=== PATIENT | female | born 1970 | race Caucasian/White ===

== ENCOUNTER 2020-02-01 17:59 | Emergency (ER) | payer OTHER ==
[~2020-02-01] VITALS: Ht 162.6 cm; Wt 68.2 kg
--- NOTE | 2020-02-01 18:18 | NUR ---
Danny RN: GAURI COOK for ETOH, EMS called for laying on the street outside of her house, per JOEY pt consumed a pint of Jagermister today. Pt very intoxicated upon arrival to ED, changed into gown & room suicide secured. Pt unable to state whether or not she is suicial at this time. Pt tearful during trigae but unable to verbalize why. Pt states that she may have recently been tested for COVID but results have not come back yet or pt does not remember them. Pt is unable to give a clear history about COVID testing, presumably d/t ETOH intoxication. Pt denies other drug use. Pt tearfully intoxicated but cooperative at this time. Pt in bed, in hospital gown, all pt belongings (leggings, socks, 1 croc shoe, sweatshirt, long sleeve shirt, cell phone, wallet & keys) removed from room. Bedside report to EMILEE Man.
--- NOTE | 2020-02-01 22:39 | NUR ---
Pt ambulated without assistance. GCA 15. PA assessed Pt and said she was good to go home. Pt denies suicidal thoughts. No distress at this time.
--- NOTE | 2020-02-01 22:52 | NUR ---
Gave DC instructions to Pt. Verbalized understanding.
[2020-02-01 22:53] VITALS: BP 127/89
== END 2020-02-01 22:55 | disposition home or self-care (01) ==
LOC: ED 19:05
DX: F10.120 Alcohol abuse with intoxication, uncomplicated (principal); Y90.9 Presence of alcohol in blood, level not specified
CPT/HCPCS: 99283

== ENCOUNTER 2020-06-28 23:31 | Emergency (ER) | payer MEDICAID, OTHER ==
[~2020-06-28] VITALS: Ht 162.6 cm; Wt 72.0 kg
[2020-06-28 23:33] VITALS: BP 127/87
== END 2020-06-29 00:18 | disposition home or self-care (01) ==
LOC: ED 06-29 00:13
DX: R44.3 Hallucinations, unspecified (principal); T42.4X5A Adverse effect of benzodiazepines, initial encounter; R94.31 Abnormal electrocardiogram [ECG] [EKG]; Y92.89 Other specified places as the place of occurrence of the external cause
CPT/HCPCS: 93005; 99283

== ENCOUNTER 2020-07-04 07:20 | Emergency (ER) | payer MEDICAID ==
[~2020-07-04] VITALS: Ht 162.6 cm; Wt 71.5 kg
[2020-07-04] MEDS ORDERED: IBUPROFEN 200 MG TABLET PO ONE (08:00)
[2020-07-04] MEDS ORDERED: ACETAMINOPHEN 325 MG TABLET PO ONE (08:00)
[2020-07-04] MEDS ORDERED: ACETAMINOPHEN 325 MG TABLET ONE (08:02)
[2020-07-04] MEDS ORDERED: IBUPROFEN 200 MG TABLET ONE (08:02)
[2020-07-04 09:04] VITALS: BP 112/73
[2020-07-04] MEDS ORDERED: ALPR0.5T7 PO (09:23)
[2020-07-04] MEDS ORDERED: MULT-658 PO (09:24)
[2020-07-04] MEDS ORDERED: HYDR-3240 PO (09:25)
--- NOTE | 2020-07-04 09:25 | NUR ---
SBAR HAND-OFF REPORT RECEIVED FROM EMILEE VEGA. ASSUMING CARE OF PATIENT. PT TO XRAY AT THIS TIME.
--- NOTE | 2020-07-04 10:51 | NUR ---
Patient given discharge instructions and they have confirmed that they understand the instructions. Patient ambulatory with steady gait.
== END 2020-07-04 10:52 | disposition home or self-care (01) ==
LOC: ED 08:16
DX: B34.9 Viral infection, unspecified (principal); Z20.828 Contact with and (suspected) exposure to other viral communicable diseases; R20.2 Paresthesia of skin; R05 Cough
CPT/HCPCS: 36415; 72110; 87635; 99284

== ENCOUNTER 2020-07-04 20:53 | Emergency (ER) | payer MEDICAID ==
[~2020-07-04] VITALS: Ht 162.6 cm; Wt 73.3 kg
[~2020-07-04 20:53] MED LIST: ALPR0.5T7 PO; HYDR-3240 PO; MULT-658 PO
[2020-07-04 20:59] VITALS: BP 122/78
--- NOTE | 2020-07-04 22:04 | NUR ---
PT VERY POOR HISTORIAN. PT STATES SHE HAS BEEN DOING WHIP ITS AND AFTER DOING SEVERAL AT HOME, HER LEGS BECAME NUMB BELOW THE KNEES. MOVEMENT AND STRENGTH APPEAR TO BE INTACT BUT PT CANNOT FEEL TOUCH TO LEGS BELOW THE KNEES.
[2020-07-04 22:59] LABS: BASOPHILS % (AUTO) 0 % (0-1); EOSINOPHILS % (AUTO) 1 % (1-7); LYMPHOCYTES % (AUTO) 46 % (22-44); MEAN CORPUSCULAR HEMOGLOBIN 36.9 pg (27.0-34.8); MEAN CORPUSCULAR HGB CONC 35.5 g/dL (32.4-35.8); MONOCYTES % (AUTO) 9 % (2-9); NEUTROPHILS % (AUTO) 44 % (42-75); PLATELET COUNT 199 x10^3/uL (130-400); RED BLOOD COUNT 3.14 x10^6/uL (3.82-5.3)
[2020-07-04 23:02] LABS: MICROSCOPIC NOT IND
[2020-07-04 23:08] LABS: ALBUMIN 3.6 g/dL (3.4-5.0); ANION GAP 9 mmol/L (5-15); CALCIUM 8.3 mg/dL (8.5-10.1); CHLORIDE 97 mmol/L (98-107)
[2020-07-04 23:14] LABS: ALANINE AMINOTRANSFERASE 35 U/L (12-78); ALKALINE PHOSPHATASE 51 U/L (45-117); BILIRUBIN,TOTAL 0.8 mg/dL (0.2-1.0); CREATININE 0.65 mg/dL (0.55-1.02); TOTAL PROTEIN 7.1 g/dL (6.4-8.2)
[2020-07-04 23:16] LABS: AMPHETAMINE SCREEN, URINE Negative (Negative); BARBITURATE SCREEN, URINE Negative (Negative); BENZODIAZEPINE SCREEN, URINE Positive (Negative); CANNABINOID SCREEN, URINE Negative (Negative); COCAINE SCREEN, URINE Negative (Negative); METHADONE SCREEN, URINE Negative (Negative); OPIATE SCREEN, URINE Negative (Negative)
[2020-07-04 23:20] LABS: MD NO; SALICYLATE LEVEL < 1.7 mg/dL (2.8-20.0)
--- NOTE | 2020-07-05 | NUR ---
PT REQUESTING TO LEAVE. JOVANNAA PAPERWORK SIGNED AND ADDED TO PAPER CHART. PT PROVIDED TAXI VOUCHER HOME.
== END 2020-07-05 00:02 | disposition left against medical advice (07) ==
LOC: ED 21:22
DX: R20.2 Paresthesia of skin (principal); Z72.9 Problem related to lifestyle, unspecified; F10.220 Alcohol dependence with intoxication, uncomplicated; R94.31 Abnormal electrocardiogram [ECG] [EKG]
CPT/HCPCS: 36415; 80053; 80307; 81003; 84703; 85025; 93005; 99284

== ENCOUNTER 2020-07-06 05:02 | Emergency (ER) | payer MEDICAID ==
[~2020-07-06] VITALS: Ht 162.6 cm; Wt 71.5 kg
[2020-07-06 05:30] VITALS: BP 111/73
--- NOTE | 2020-07-06 05:45 | NUR ---
49 YO FEMALE CC OF "NOT ABLE TO FEEL MY LEGS" X3 DAYS, SEEN HERE FOR SAME COMPLAINT MULTIPLE TIMES THIS MONTH. PT APPEARS TO BE WELL NOURISHED AND IS PLEASANT. PT STATES SHE HAD TWO BEERS AROUND 0330 TODAY AND SOMETIMES USES COCAINE BUT "HASN'T USED IN MONTHS". MD AT BEDSIDE FOR EXAM.
[2020-07-06 06:49] LABS: ANION GAP 8 mmol/L (5-15); CALCIUM 8.9 mg/dL (8.5-10.1); CHLORIDE 104 mmol/L (98-107)
[2020-07-06 06:50] LABS: CREATININE 0.75 mg/dL (0.55-1.02)
--- NOTE | 2020-07-06 07:03 | NUR ---
RECEIVED REPORT FROM NAI MIGUEL RN'S. PT RESTING ON TIMMY.
== END 2020-07-06 07:23 | disposition home or self-care (01) ==
LOC: ED 05:38
DX: G62.1 Alcoholic polyneuropathy (principal); F10.20 Alcohol dependence, uncomplicated; E11.9 Type 2 diabetes mellitus without complications; Z87.891 Personal history of nicotine dependence; Y90.9 Presence of alcohol in blood, level not specified
CPT/HCPCS: 36415; 80048; 99283

== ENCOUNTER 2020-07-11 14:48 | Emergency (ER) | payer MEDICAID ==
[~2020-07-11] VITALS: Ht 162.6 cm; Wt 70.8 kg
[2020-07-11 16:20] LABS: BASOPHILS % (AUTO) 0 % (0-1); EOSINOPHILS % (AUTO) 1 % (1-7); LYMPHOCYTES % (AUTO) 17 % (22-44); MEAN CORPUSCULAR HEMOGLOBIN 36.3 pg (27.0-34.8); MEAN CORPUSCULAR HGB CONC 34.2 g/dL (32.4-35.8); MEAN PLATELET VOLUME 7.7 fL (7.4-10.4); MONOCYTES % (AUTO) 7 % (2-9); NEUTROPHILS % (AUTO) 75 % (42-75); PLATELET COUNT 216 x10^3/uL (130-400); RED BLOOD COUNT 3.46 x10^6/uL (3.82-5.3); RED CELL DISTRIBUTION WIDTH 16.2 % (9.6-15.2)
[2020-07-11 16:26] LABS: MD NO
[2020-07-11 16:29] LABS: ALBUMIN 3.6 g/dL (3.4-5.0); ANION GAP 8 mmol/L (5-15); CALCIUM 8.6 mg/dL (8.5-10.1); CHLORIDE 107 mmol/L (98-107)
[2020-07-11 16:35] LABS: ALANINE AMINOTRANSFERASE 20 U/L (12-78); ALKALINE PHOSPHATASE 72 U/L (45-117); CREATININE 0.76 mg/dL (0.55-1.02); TOTAL PROTEIN 7.3 g/dL (6.4-8.2)
--- NOTE | 2020-07-11 17:51 | NUR ---
patient had a democrat on the of this month, reports that she did about 150 whip it's and some norcos. passed out/fell and urinated on herself, then woke up pacing house. since then she's felt weakness, numbness to ble and fatigue
[2020-07-11] MEDS ORDERED: THIAMINE 100MG TABLET PO ONE (18:00)
--- NOTE | 2020-07-11 18:52 | NUR ---
REPORT TO YOSELIN
[2020-07-11] MEDS ORDERED: POTASSIUM CHLORIDE 20 MEQ TAB.ER.PRT PO ONE (19:00)
[2020-07-11] MEDS ORDERED: THIAMINE 100MG TABLET ONE (19:13)
[2020-07-11] MEDS ORDERED: POTASSIUM CHLORIDE 20 MEQ TAB.ER.PRT ONE (19:14)
--- NOTE | 2020-07-11 19:20 | NUR ---
Report received from Clemente HEBERT. Care assumed. Pt resting with no acute distress noted. Pt medicated per NOV. Chart up for recheck. VSS. Call light in reach. No further needs expressed.
[2020-07-11 20:55] VITALS: BP 124/76
== END 2020-07-11 20:57 | disposition home or self-care (01) ==
LOC: ED 18:46
DX: R20.2 Paresthesia of skin (principal); F10.10 Alcohol abuse, uncomplicated; R94.31 Abnormal electrocardiogram [ECG] [EKG]; Y90.9 Presence of alcohol in blood, level not specified
CPT/HCPCS: 36415; 70450; 80053; 80307; 84703; 85025; 93005; 99285

== ENCOUNTER 2020-08-05 13:12 | Inpatient (IN) | payer MEDICAID ==
[~2020-08-05] VITALS: Ht 162.6 cm; Wt 73.2 kg
--- NOTE | 2020-08-05 13:27 | NUR ---
PATIENT GAURI ALONSO WITH CHIEF C/O DVT. PER JOEY PATIENT WAS AT [facility] AND DIAGNOSED WITH DVT IN HER LEFT LEG. PATIENT STATES SHE NOTICED SWELLING IN HER LEFT LEG AROUND June, WAS SEEN IN ER FOR SWELLING AND TOLD TO SEE PCP, HOWEVER, PATIENT STATES "I FORGOT WHAT THEY SAID AND THEN LOOKED AT THE PAPERWORK AND SAW IT SAID TO FOLLOW UP WITH PCP RIGHT AWAY." 18 GAUGE IV STARTED EN ROUTE IN R-AC, VITALS STABLE PER EMS. PATIENT'S LEFT CALF IS SWOLLEN, WARM TO THE TOUCH. PATIENT CONNECTED TO VITALS MACHINE, NO SIGNS OF ACUTE DISTRESS, CALL LIGHT WITHIN REACH.
--- NOTE | 2020-08-05 13:28 | NUR ---
ERMD AT BEDSIDE.
[2020-08-05] MEDS ORDERED: SODIUM CHLORIDE FLUSH 10ML SYR IVF ONE (14:00)
--- NOTE | 2020-08-05 14:05 | NUR ---
PATIENT TO IMAGING.
[2020-08-05] MEDS ORDERED: LORazepam 2 MG/ML, 1ML IV ONE (14:30)
[2020-08-05] MEDS ORDERED: LORazepam 2 MG/ML, 1ML ONE (14:32)
--- NOTE | 2020-08-05 14:37 | NUR ---
PT MEDICATED PER MAR
[2020-08-05 14:55] LABS: HCT (SEDRATE) 38.6 % (34.6-47.8)
[2020-08-05 14:58] LABS: BASOPHILS % (AUTO) 1 % (0-1); EOSINOPHILS % (AUTO) 1 % (1-7); LYMPHOCYTES % (AUTO) 29 % (22-44); MEAN CORPUSCULAR HEMOGLOBIN 35.9 pg (27.0-34.8); MEAN CORPUSCULAR HGB CONC 34.4 g/dL (32.4-35.8); MEAN PLATELET VOLUME 7.8 fL (7.4-10.4); MONOCYTES % (AUTO) 14 % (2-9); NEUTROPHILS % (AUTO) 56 % (42-75); PLATELET COUNT 227 x10^3/uL (130-400); RED BLOOD COUNT 3.71 x10^6/uL (3.82-5.3); RED CELL DISTRIBUTION WIDTH 14.3 % (9.6-15.2)
[2020-08-05 14:59] LABS: MD NO
[2020-08-05 15:02] LABS: ALBUMIN 3.3 g/dL (3.4-5.0); ANION GAP 5 mmol/L (5-15); CALCIUM 8.8 mg/dL (8.5-10.1); CHLORIDE 109 mmol/L (98-107)
--- NOTE | 2020-08-05 15:09 | NUR ---
PATIENT TO IMAGING.
[2020-08-05 15:29] LABS: ALANINE AMINOTRANSFERASE 25 U/L (12-78); ALKALINE PHOSPHATASE 61 U/L (45-117); BILIRUBIN,TOTAL 0.9 mg/dL (0.2-1.0); CREATININE 0.58 mg/dL (0.55-1.02); TOTAL PROTEIN 7.3 g/dL (6.4-8.2)
--- NOTE | 2020-08-05 15:44 | NUR ---
REPORT CALLED TO EMILEE VEGA ON MEDICAL.
--- NOTE | 2020-08-05 16:00 | NUR ---
PATIENT IN MRI.
[2020-08-05] MEDS ORDERED: GADOTERATE 10 MMOL/20 ML SYR ONE (16:34)
--- NOTE | 2020-08-05 16:37 | NUR ---
SPOKE WITH BROTHER AND UPDATED ON POC.
--- NOTE | 2020-08-05 16:38 | NUR ---
MOM'S PHONE:KAMILLE MAHONEY [phone] DAD'S PHONE: REYNOLD RODRIGEZ [phone] BROTHER'S PHONE: BRIE RODRIGEZ [phone]
[2020-08-05] MEDS ORDERED: HYDROcodone/APAP 5/325 TABLET PO PRN ×2 (17:00→18:30)
[2020-08-05] MEDS ORDERED: DOCUSATE 100 MG CAPSULE PO PRN ×2 (17:00→18:30)
[2020-08-05] MEDS ORDERED: LABETALOL 5MG/ML, 20ML IVPush PRN (17:00)
[2020-08-05] MEDS ORDERED: ACETAMINOPHEN 325 MG TABLET PO PRN (17:00)
[2020-08-05] MEDS ORDERED: ONDANSETRON 2MG/ML, 2ML IVPush PRN (17:00)
[2020-08-05] MEDS ORDERED: ONDANSETRON ODT 4 MG PO PRN (17:00)
[2020-08-05] MEDS ORDERED: TEMAZEPAM 15 MG CAPSULE PO PRN (17:00)
[2020-08-05] MEDS ORDERED: BISACODYL 10 MG SUPP PR PRN (17:00)
[2020-08-05] MEDS ORDERED: POLYETHYLENE GLYCOL 17 GM PACKET PO PRN (17:00)
--- NOTE | 2020-08-05 17:00 | NUR ---
PATIENT STILL IN MRI.
--- NOTE | 2020-08-05 17:09 | NUR ---
SPOKE WITH PATIENT'S SIGNIGICANT OTHER AND UPDATED POC.
--- NOTE | 2020-08-05 17:09 | NUR ---
PATIENT BACK FROM MRI. DR. MASSEY AT BEDSIDE FOR EVALUATION.
--- NOTE | 2020-08-05 18:13 | NUR ---
PATIENT SITTING IN GURNEY WATCHING TV, CONNECTED TO DRAFTER ELECTRICAL, NO SIGNS OF ACUTE DISTRESS, CALL LIGHT WITHIN REACH.
--- NOTE | 2020-08-05 18:14 | NUR ---
FOOD TRAY ORDERED.
[2020-08-05] MEDS: SENNOSIDES 8.6 MG TABLET PO SCH ×2 (18:30→22:03)
[2020-08-05] MEDS ORDERED: Enoxaparin 1 mg/kg protocol SQ SCH (18:30)
[2020-08-05] MEDS ORDERED: SENNOSIDES 8.6 MG TABLET PO PRN (18:30)
--- NOTE | 2020-08-05 18:38 | NUR ---
PATIENT AMBULATED TO BATHROOM AND BACK TO [facility] WITH USE OF WALKER, URINE SAMPLE COLLECTED AND SENT TO LAB.
[2020-08-05] MEDS ORDERED: HEPARIN 25,000 UNITS/250ML PMX 250 ML ONE (18:55)
[2020-08-05] MEDS ORDERED: HEPARIN 5,000 UNITS/ML, 1ML ONE (18:55)
[2020-08-05] MEDS ORDERED: HEPARIN 5,000 UNITS/ML, 1ML IV ONE (19:00)
[2020-08-05] MEDS ORDERED: HEPARIN 25,000 UNITS/250ML PMX 250 ML IV PRN (19:00)
[2020-08-05] MEDS ORDERED: HEPARIN 5,000 UNITS/ML, 1ML IV PRN (19:00)
--- NOTE | 2020-08-05 19:05 | NUR ---
Heparin bolus/drip given with Latrice HEBERT. (+) DP pulse, (+) CSM noted to affected extremity. Bed low, side rails up, call clancy within reach
[2020-08-05 19:10] LABS: MICROSCOPIC AUTO
--- NOTE | 2020-08-05 19:40 | NUR ---
Assumed care of pt. Provided pt with dinner tray. Denies pain at this time. Bed low, side rails up, call clancy within reach
--- NOTE | 2020-08-05 20:00 | NUR ---
Spoke with ED provider r/t Lovenox order with Heparin order. Lovenox not given per conversation with ED MD, heparin bolus given and infusion running. This RN and inpatient RN will attempt to discuss d/c of Lovenox order with hospitalist
--- NOTE | 2020-08-05 20:25 | NUR ---
Attempted report x1 at 2024
--- NOTE | 2020-08-05 20:40 | NUR ---
Ambulated to bathroom independently, steady gait
--- NOTE | 2020-08-05 20:51 | NUR ---
Report given to Jose C HEBERT
[2020-08-05] MEDS ORDERED: ENOXAPARIN 80 MG/0.8 ML SQ SCH (22:00)
[2020-08-05] MEDS: POLYETHYLENE GLYCOL 17 GM PACKET PO SCH (22:04)
[2020-08-05] MEDS: CYANOCOBALAMIN 1,000 MCG/ML, 1ML IM SCH (22:04)
[2020-08-05] MEDS: ENOXAPARIN 80 MG/0.8 ML SQ SCH (23:25)
[2020-08-06 01:27] LABS: BASOPHILS % (AUTO) 1 % (0-1); EOSINOPHILS % (AUTO) 1 % (1-7); LYMPHOCYTES % (AUTO) 39 % (22-44); MEAN CORPUSCULAR HEMOGLOBIN 35.5 pg (27.0-34.8); MEAN CORPUSCULAR HGB CONC 34.3 g/dL (32.4-35.8); MEAN PLATELET VOLUME 7.8 fL (7.4-10.4); MONOCYTES % (AUTO) 14 % (2-9); NEUTROPHILS % (AUTO) 45 % (42-75); PLATELET COUNT 225 x10^3/uL (130-400); RED BLOOD COUNT 3.42 x10^6/uL (3.82-5.3); RED CELL DISTRIBUTION WIDTH 14.3 % (9.6-15.2)
[2020-08-06 01:32] LABS: ANION GAP 4 mmol/L (5-15); CALCIUM 8.5 mg/dL (8.5-10.1); CHLORIDE 111 mmol/L (98-107)
[2020-08-06 01:34] LABS: MD NO
[2020-08-06 01:37] LABS: ALANINE AMINOTRANSFERASE 21 U/L (12-78); ALKALINE PHOSPHATASE 54 U/L (45-117); BILIRUBIN,TOTAL 0.5 mg/dL (0.2-1.0); CHOL/HDL RATIO 2.9; CHOLESTEROL, TOTAL 145 mg/dL (140-239); CREATININE 0.69 mg/dL (0.55-1.02); HDL CHOL % 34 % (28-40); HDL CHOLESTEROL (DIRECT) 50 mg/dL (40-60); LDL CHOLESTEROL,CALCULATED 74 mg/dL (54-169); LDL/HDL RATIO 1.5 (0.5-3.0); TOTAL PROTEIN 6.6 g/dL (6.4-8.2); TRIGLYCERIDES 103 mg/dL (50-200); VLDL CHOLESTEROL 21 mg/dL (0-25)
[2020-08-06 04:13] VITALS: BP 110/66
[2020-08-06 06:54] VITALS: BP 106/69
[2020-08-06] MEDS: ENOXAPARIN 80 MG/0.8 ML SQ SCH ×2 (07:34→19:45)
[2020-08-06] MEDS: POLYETHYLENE GLYCOL 17 GM PACKET PO SCH ×2 (09:01→21:00)
[2020-08-06] MEDS: MULTIVITAMIN 1 TABLET PO SCH (09:02)
[2020-08-06] MEDS: SENNOSIDES 8.6 MG TABLET PO SCH ×2 (09:02→21:00)
[2020-08-06 11:58] VITALS: BP 105/75
[2020-08-06 19:40] VITALS: BP 136/90
[2020-08-06] MEDS: CYANOCOBALAMIN 1,000 MCG/ML, 1ML IM SCH (21:55)
[2020-08-07 01:31] VITALS: BP 131/86
[2020-08-07 06:15] LABS: BASOPHILS % (AUTO) 1 % (0-1); EOSINOPHILS % (AUTO) 2 % (1-7); LYMPHOCYTES % (AUTO) 35 % (22-44); MEAN CORPUSCULAR HEMOGLOBIN 36.1 pg (27.0-34.8); MEAN CORPUSCULAR HGB CONC 34.6 g/dL (32.4-35.8); MEAN PLATELET VOLUME 7.7 fL (7.4-10.4); MONOCYTES % (AUTO) 12 % (2-9); NEUTROPHILS % (AUTO) 50 % (42-75); PLATELET COUNT 248 x10^3/uL (130-400); RED BLOOD COUNT 3.54 x10^6/uL (3.82-5.3); RED CELL DISTRIBUTION WIDTH 13.7 % (9.6-15.2)
[2020-08-07 06:18] LABS: MD NO
[2020-08-07 06:34] VITALS: BP 99/70
[2020-08-07] MEDS: ENOXAPARIN 80 MG/0.8 ML SQ SCH ×2 (07:34→19:16)
[2020-08-07] MEDS: POLYETHYLENE GLYCOL 17 GM PACKET PO SCH ×2 (08:26→21:57)
[2020-08-07] MEDS: SENNOSIDES 8.6 MG TABLET PO SCH ×2 (08:26→21:57)
[2020-08-07] MEDS: MULTIVITAMIN 1 TABLET PO SCH (08:26)
[2020-08-07] MEDS ORDERED: LORazepam 2 MG/ML, 1ML IVPush ONE (09:30)
[2020-08-07 11:25] VITALS: BP 112/80
[2020-08-07] MEDS ORDERED: GADOTERATE 7.5 MMOL/15 ML VIAL ONE (14:04)
[2020-08-07 19:16] VITALS: BP 124/79
[2020-08-07] MEDS: CYANOCOBALAMIN 1,000 MCG/ML, 1ML IM SCH (21:57)
[2020-08-08 02:00] VITALS: BP 118/73
[2020-08-08 06:26] LABS: BASOPHILS % (AUTO) 1 % (0-1); EOSINOPHILS % (AUTO) 2 % (1-7); LYMPHOCYTES % (AUTO) 35 % (22-44); MEAN CORPUSCULAR HEMOGLOBIN 35.7 pg (27.0-34.8); MEAN CORPUSCULAR HGB CONC 34.4 g/dL (32.4-35.8); MEAN PLATELET VOLUME 7.7 fL (7.4-10.4); MONOCYTES % (AUTO) 11 % (2-9); NEUTROPHILS % (AUTO) 51 % (42-75); PLATELET COUNT 251 x10^3/uL (130-400); RED BLOOD COUNT 3.54 x10^6/uL (3.82-5.3); RED CELL DISTRIBUTION WIDTH 14.1 % (9.6-15.2)
[2020-08-08 06:30] LABS: MD NO
[2020-08-08 06:50] VITALS: BP 116/70
[2020-08-08] MEDS: SENNOSIDES 8.6 MG TABLET PO SCH ×2 (09:00→21:24)
[2020-08-08] MEDS: ENOXAPARIN 80 MG/0.8 ML SQ SCH (09:08)
[2020-08-08] MEDS: POLYETHYLENE GLYCOL 17 GM PACKET PO SCH ×2 (09:08→21:25)
[2020-08-08] MEDS: MULTIVITAMIN 1 TABLET PO SCH (09:08)
[2020-08-08 12:54] VITALS: BP 109/74
[2020-08-08] MEDS ORDERED: ENOXAPARIN 80 MG/0.8 ML SQ SCH (18:00)
[2020-08-08 19:50] VITALS: BP 113/78
[2020-08-08] MEDS: CYANOCOBALAMIN 1,000 MCG/ML, 1ML IM SCH (21:27)
[2020-08-09 01:18] VITALS: BP 101/69
[2020-08-09 06:44] LABS: BASOPHILS % (AUTO) 2 % (0-1); EOSINOPHILS % (AUTO) 2 % (1-7); LYMPHOCYTES % (AUTO) 34 % (22-44); MEAN CORPUSCULAR HEMOGLOBIN 35.5 pg (27.0-34.8); MEAN CORPUSCULAR HGB CONC 33.9 g/dL (32.4-35.8); MEAN PLATELET VOLUME 7.8 fL (7.4-10.4); MONOCYTES % (AUTO) 11 % (2-9); NEUTROPHILS % (AUTO) 52 % (42-75); PLATELET COUNT 270 x10^3/uL (130-400); RED BLOOD COUNT 3.62 x10^6/uL (3.82-5.3)
[2020-08-09 06:49] LABS: MD NO
[2020-08-09 07:06] LABS: CHLORIDE 111 mmol/L (98-107)
[2020-08-09 07:15] LABS: ANION GAP 7 mmol/L (5-15); CALCIUM 8.9 mg/dL (8.5-10.1); CREATININE 0.64 mg/dL (0.55-1.02)
[2020-08-09 07:42] VITALS: BP 114/79
[2020-08-09] MEDS: POLYETHYLENE GLYCOL 17 GM PACKET PO SCH (08:41)
[2020-08-09] MEDS: MULTIVITAMIN 1 TABLET PO SCH (08:41)
[2020-08-09] MEDS: SENNOSIDES 8.6 MG TABLET PO SCH (08:41)
[2020-08-09] MEDS ORDERED: APIXABAN 5 MG TABLET PO SCH (09:00)
[2020-08-09] MEDS ORDERED: CYAN10002 IM (13:12)
[2020-08-09] MEDS ORDERED: APIX5TAB PO (13:12)
[2020-08-09] MEDS ORDERED: APIX5TAB4 PO (13:12)
[2020-08-09 13:31] VITALS: BP 109/78
[2020-08-09] MEDS ORDERED: FLU VACC QS2020-21(6MOS UP)/PF 60MCG/0.5 ML SYR IM ONE (15:00)
== END 2020-08-09 16:00 | disposition home or self-care (01) | DRG 300 ==
LOC: ED 13:37 → EDIP 15:24 → 4WST 21:09 → DCLOUNGE 08-09 15:50
PROVIDERS: ADMIT Family Medicine; ATTEND Hospitalist
DX: I82.402 Acute embolism and thrombosis of unspecified deep veins of left lower extremity (principal); G32.0 Subacute combined degeneration of spinal cord in diseases classified elsewhere; E53.8 Deficiency of other specified B group vitamins; F10.10 Alcohol abuse, uncomplicated; F41.1 Generalized anxiety disorder; K59.00 Constipation, unspecified; M41.9 Scoliosis, unspecified; M79.89 Other specified soft tissue disorders; M47.816 Spondylosis without myelopathy or radiculopathy, lumbar region; R32 Unspecified urinary incontinence; Z82.49 Family history of ischemic heart disease and other diseases of the circulatory system; Z83.3 Family history of diabetes mellitus; Z86.718 Personal history of other venous thrombosis and embolism; Z87.891 Personal history of nicotine dependence; Z88.8 Allergy status to other drugs, medicaments and biological substances; Z79.899 Other long term (current) drug therapy; Z79.891 Long term (current) use of opiate analgesic; Z88.0 Allergy status to penicillin
CPT/HCPCS: 36415; 70553; 72141; 72157; 72158; 74018; 80048; 80053; 80061; 81001; 81240; 82607; 83036; 83735; 84100; 84443; 85025; 85300; 85301; 85303; 85306; 85520; 85598; 85610; 85613; 85651; 85670; 85730; 85732; 86146; 86147; 86592; 90686; 93970; 96374; 96375; 99285; G0378; J1644; J1650; A9575; J2060; J3420

== ENCOUNTER 2021-01-22 12:37 | Emergency (ER) | payer MEDICAID ==
[~2021-01-22] VITALS: Ht 162.6 cm; Wt 79.0 kg
[~2021-01-22 12:37] MED LIST changes: +APIX5TAB PO; +APIX5TAB4 PO; +CYAN10002 IM; +HYDR-2214 PO; -HYDR-3240 PO
[2021-01-22 12:44] VITALS: BP 160/90
--- NOTE | 2021-01-22 13:41 | NUR ---
parking lot attendant: pt from lobby to room 4
[2021-01-22] MEDS ORDERED: METHOCARBAMOL 750 MG TABLET ONE (14:26)
[2021-01-22] MEDS ORDERED: KETOROLAC 30 MG/1 ML ONE (14:26)
[2021-01-22] MEDS ORDERED: KETOROLAC 30 MG/1 ML IM ONE (14:30)
[2021-01-22] MEDS ORDERED: METHOCARBAMOL 750 MG TABLET PO ONE (14:30)
--- NOTE | 2021-01-22 14:34 | NUR ---
Task rn: medicate per emar for msk pain rated at 6/10 robaxin avoided as patient with long drive home Patient agreeable
== END 2021-01-22 14:57 | disposition home or self-care (01) ==
LOC: ED 14:45
DX: M54.6 Pain in thoracic spine (principal)
CPT/HCPCS: 96372; 99283; J1885